=== PATIENT | male | born 1970 | race Caucasian/White ===

== ENCOUNTER 2016-09-10 02:42 | Emergency (ER) | payer OTHER ==
--- NOTE | 2016-09-10 03:47 | EDM.PDOC ---
ED HPI GENERAL MEDICAL PROBLEM - General Chief Complaint: Upper Extremity Injury/Pain Stated Complaint: PAIN RIGHT SIDE Time Seen by Provider: 09/10/16 03:43 Source of Information: Reports: Patient - History of Present Illness INITIAL COMMENTS - FREE TEXT/NARRATIVE: HISTORY AND PHYSICAL: History of present illness: A shunt presents with right shoulder pain worsened by movement better at rest he rates 4 out of 10 he is concerned he may be having a heart attack, I can reproduce symptoms with movement of his right arm and palpation over right paraspinous muscles as well as infraspinatus. Patient works on [employer] and has had discomfort since Saturday which would be 3-4 days at current Pain is not associated with lightheadedness dizziness shortness of breath or diaphoresis no actual chest pain fever nausea vomiting chills sweats no bowel or urine symptoms Patient denies trauma Review of systems: As per history of present illness and below otherwise all systems reviewed and negative. Past medical history: As per history of present illness and as reviewed below otherwise noncontributory. Surgical history: As per history of present illness and as reviewed below otherwise noncontributory. Social history: No reported history of drug or alcohol abuse. Family history: As per history of present illness and as reviewed below otherwise noncontributory. No acute distress Physical exam: HEENT: Atraumatic, normocephalic, pupils reactive, negative for conjunctival pallor or scleral icterus, mucous membranes moist, throat clear, neck supple, nontender, trachea midline. Lungs: Clear to auscultation, breath sounds equal bilaterally, chest nontender. Heart: S1S2, regular, negative for clicks, rubs, or JVD. Abdomen: Soft, nondistended, nontender. Negative for masses or hepatosplenomegaly. Negative for costovertebral tenderness. Pelvis: Stable nontender. Genitourinary: Deferred. Rectal: Deferred. Extremities: Atraumatic, negative for cords or calf pain. Neurovascular unremarkable. Right upper extremity for range of motion strength 5 out of 5 no edema Ranching negative for extension past horizontal entire limb is neurovascularly intact no pain with head movement Neuro: Awake, alert, oriented. Cranial nerves II through XII unremarkable. Cerebellum unremarkable. Motor and sensory unremarkable throughout. Exam nonfocal. Musculoskeletal I can reproduce symptoms with palpation of paraspinous muscles as well as as well as infraspinatus and right trapezius distribution otherwise unremarkable exam no vertebral point tenderness Diagnostics: []Right shoulder 3 views Therapeutics: []Rest ice ibuprofen Impression: []Muscle spasm right shoulder girdle Anxiety about health Definitive disposition and diagnosis as appropriate pending reevaluation and review of above. Right Shoulder Pain Score (Numeric/FACES): 10 - Related Data Allergies Allergy/AdvReac Type Severity Reaction Status Date / Time Opioids - Morphine Analogues Allergy Stomach Verified 09/10/16 02:48 Upset Home Meds: Home Meds . [No Known Home Meds] 09/10/16 [History] Past Medical History HEENT History: Reports: None Cardiovascular History: Reports: None Respiratory History: Reports: None Gastrointestinal History: Reports: None Genitourinary History: Reports: None Musculoskeletal History: Reports: Other (See Below) Other Musculoskeletal History: bursitis left shoulder Psychiatric History: Reports: None - Infectious Disease History Infectious Disease History: Reports: None - Past Surgical History HEENT Surgical History: Reports: None Cardiovascular Surgical History: Reports: None Respiratory Surgical History: Reports: None Social & Family History - Tobacco Use Smoking Status *Q: Current Every Day Smoker Years of Tobacco use: 35 Packs/Tins Daily: 0.5 Review of Systems - Review of Systems Review Of Systems: ROS reveals no pertinent complaints other than HPI. ED EXAM, GENERAL - Physical Exam Exam: See Below Course - Vital Signs Last Recorded V/S: Last Vital Signs Temp 36.6 C 09/10/16 02:49 Pulse 75 09/10/16 02:49 Resp 18 09/10/16 02:49 BP 197/100 H 09/10/16 02:49 Pulse Ox 98 09/10/16 02:49 - Orders/Labs/Meds Orders: Active Orders 24 hr Category Date Time Status Shoulder Comp Rt [CR] Stat Exams 09/10/16 02:58 Taken Departure - Departure Time of Disposition: 04:09 Disposition: Home, Self-Care 01 Condition: Good Clinical Impression: Muscle spasm - Discharge Information Forms: ED Department Discharge Additional Instructions: Rest Ice 20 minute intervals 3 times daily 7-10 days Ibuprofen 400 mg 3 times daily 7-10 days Follow-up with primary care in 2 weeks Return if symptoms persist or worsen The following information is given to patients seen in the emergency department who are being discharged to home. This information is to outline your options for follow-up care. We provide all patients seen in our emergency department with a follow-up referral. The need for follow-up, as well as the timing and circumstances, are variable depending upon the specifics of your emergency department visit. If you don't have a primary care physician on staff, we will provide you with a referral. We always advise you to contact your personal physician following an emergency department visit to inform them of the circumstance of the visit and for follow-up with them and/or the need for any referrals to a consulting specialist. The emergency department will also refer you to a specialist when appropriate. This referral assures that you have the opportunity for follow-up care with a specialist. All of these measure are taken in an effort to provide you with optimal care, which includes your follow-up. Under all circumstances we always encourage you to contact your private physician who remains a resource for coordinating your care. When calling for follow-up care, please make the office aware that this follow-up is from your recent emergency room visit. If for any reason you are refused follow-up, please contact the [facility] emergency department at and asked to speak to the emergency department charge nurse. - My Orders Last 24 Hours: My Active Orders 09/10/16 02:58 Shoulder Comp Rt [CR] Stat - Assessment/Plan Last 24 Hours: My Active Orders 09/10/16 02:58 Shoulder Comp Rt [CR] Stat
[2016-09-10 04:20] VITALS: BP 162/86
--- NOTE | 2016-09-10 15:24 | CR ---
EXAM DATE: 09/10/16 PATIENT'S AGE: 46 Patient: REKHA PERDUE Facility: [place], [place] Site . Site : 1970 Study: XRay Shoulder Right [id number]/24/2017 4:03:55 AM Ordering Physician: Pilar Subramanian Final Report: INDICATION: NON INJURY RT SHOULDER PAIN TECHNIQUE: Four views of the right shoulder COMPARISON: None FINDINGS: Bones: No fractures or bone lesions. Joint spaces: Degenerative changes. Soft tissues: Unremarkable. IMPRESSION: No acute bony abnormality. Dictated by Rafat Santacruz MD @ 09/10/2016 4:34:03 AM Dictated by: Rafat Santacruz MD @ 09/10/2016 04:34:12 (Electronic Signature) Report Signed by Proxy. [facility]
== END 2016-09-10 04:15 | disposition home or self-care (01) ==
LOC: MW.ED 02:42
DX: M62.838 Other muscle spasm (principal); F17.210 Nicotine dependence, cigarettes, uncomplicated; Z88.5 Allergy status to narcotic agent
CPT/HCPCS: 73030-26-RT; 73030-RT; 99282; 99283